=== PATIENT | female | born 1955 | race Caucasian/White ===

== ENCOUNTER 2022-10-13 13:16 | Emergency (ER) | payer MEDICARE ==
[~2022-10-13] VITALS: Ht 162.6 cm; Wt 75.3 kg
[2022-10-13 13:19] VITALS: BP_SYST 138
--- NOTE | 2022-10-13 13:20 | NUR ---
Patient to ER bed H2 to gown for evaluation. Side rails up. Report given to HUA FRIED.
--- NOTE | 2022-10-13 13:22 | NUR ---
PT WAS IN MAIN CONFERENCE ROOM DONATING BLOOD TO [facility], AROUND 1250 PT STOOD UP AFTER DONATION AND LOST CONSCIOUSNESS FALLING FORWARD ONTO FACE. C-COLAR PUT IN PLACE AND PT TRANSFERRED TO [facility] AND TRANSPORTED TO ED. PT IS AOX4, VSS, DENIES BEING ON BLOOD THINNERS
--- NOTE | 2022-10-13 13:25 | NUR ---
ER DR. RAMOS EXAMINING PT
--- NOTE | 2022-10-13 13:40 | NUR ---
Patient transported to radiology via GURNEY, accompanied by STAFF.
--- NOTE | 2022-10-13 14:50 | NUR ---
ER DR. TAMEZ EXAMINING PT
--- NOTE | 2022-10-13 14:52 | NUR ---
Patient given written and verbal discharge instructions and verbalizes understanding. ER MD discussed with patient the results and treatment provided. Patient in stable condition. ID arm band removed. IV catheter removed intact and dressing applied, no active bleeding. Opportunity for questions provided and answered. Medication side effect fact sheet provided.
[2022-10-13] MEDS ORDERED: ONDANSETRON 4 MG ODT TAB PO ONE (15:00)
[2022-10-14 10:59] VITALS: BP_SYST 138
== END 2022-10-13 15:30 | disposition home or self-care (01) ==
LOC: SED 13:16
DX: R55 Syncope and collapse (principal)
CPT/HCPCS: 99284; 70450; 72125; 76376; Q0162